=== PATIENT | male | born 1970 | race Two or more races ===

== ENCOUNTER 2019-12-25 11:24 | Emergency (ER) | payer OTHER ==
[~2019-12-25] VITALS: Ht 152.4 cm; Wt 122.5 kg
[2019-12-25] MEDS ORDERED: NORFLEX100MG PO (14:20)
[2019-12-25] MEDS ORDERED: KETO10TA2 PO (14:20)
== END 2019-12-25 14:49 | disposition home or self-care (01) ==
LOC: ER 11:24
DX: S13.4XXA Sprain of ligaments of cervical spine, initial encounter (principal); S60.221A Contusion of right hand, initial encounter; S30.0XXA Contusion of lower back and pelvis, initial encounter; S40.011A Contusion of right shoulder, initial encounter; V49.9XXA Car occupant (driver) (passenger) injured in unspecified traffic accident, initial encounter; Y93.89 Activity, other specified; Y92.488 Other paved roadways as the place of occurrence of the external cause; Y99.8 Other external cause status

== ENCOUNTER 2020-09-16 11:30 | Emergency (ER) | payer OTHER ==
[~2020-09-16] VITALS: Ht 172.7 cm; Wt 127.0 kg
[~2020-09-16 11:30] MED LIST: KETO10TA2 PO; NORFLEX100MG PO
[2020-09-16] MEDS ORDERED: FIORINAL 50-321 EACH PO (17:55)
== END 2020-09-16 18:37 | disposition home or self-care (01) ==
LOC: ER 11:30
DX: R51.9 Headache, unspecified (principal); R00.2 Palpitations; Z03.818 Encounter for observation for suspected exposure to other biological agents ruled out